=== PATIENT | male | born 1985 | race American Indian/Alaskan Native ===

== ENCOUNTER 2018-07-09 04:35 | Emergency (ER) | payer OTHER ==
[2018-07-09 06:03] LABS: Bilirubin,Urine NEG (Negative); Blood,Urine LG (Negative); Color,Urine Yellow (Yellow); Mucus,Urine FEW /HPF; Protein,Urine <15 mg/dL mg/dL (Negative); Urobilinogen,Urine < 2.0 mg/dL (<2.0)
[2018-07-09] MEDS ORDERED: TYLENOL ONE (06:17)
[2018-07-09] MEDS ORDERED: TYLENOL PO ONE (06:20)
--- NOTE | 2018-07-09 07:52 | Emergency Department Report ---
ED Back Pain/Injury HPI - General Chief Complaint: Urogenital-Male Stated Complaint: BACK PAIN FREQUENT URINATING Time Seen by Provider: 07/09/18 07:20 Source: patient, family Limitations: No Limitations - History of Present Illness Initial Comments: This is a 32-year-old male here reports that he has back pain with burning on urination that started this morning. He reports that pain is on both sides of his back and he is going to the bathroom frequently. He reports some nausea without any vomiting and an denies any abdominal pain. Denies any back injury. Denies any history of kidney stone. Patient denies any medical problems. Pain is 10 out of 10 and achy to back. Pain is constant and no medication taken prior to coming to the hospital. Denies any penile discharge MD Complaint: back pain -: This morning Place: home Radiation: none Severity: severe Severity scale (0 -10): 10 Quality: aching Consistency: constant Improves With: none Worsens With: movement Context: unknown Associated Symptoms: other (urinary burning and frequency). denies: confusion, weakness, chest pain, numbness, difficulty walking, cough, difficulty urinating, diaphoresis, incontinence, fever/chills, constipation, headaches, abdominal pain, loss of appetite, malaise, nausea/vomiting, rash, seizure, shortness of breath, syncope Treatments Prior to Arrival: other (none) - Related Data Previous Rx's Medication Instructions Recorded Last Taken Type Ciprofloxacin HCl [Ciprofloxacin 500 mg PO Q12HR 7 Days #14 tab 07/09/18 Unknown Rx TAB] Ibuprofen [Motrin] 800 mg PO Q8HR PRN #12 tablet 07/09/18 Unknown Rx Ondansetron [Zofran ODT TAB] 8 mg PO Q8HR PRN #12 tab.rapdis 07/09/18 Unknown Rx Tamsulosin [Flomax] 0.4 mg PO QDAY 3 Days #3 cap 07/09/18 Unknown Rx Allergies Allergy/AdvReac Type Severity Reaction Status Date / Time No Known Allergies Allergy Unverified 07/09/18 04:46 ED Review of Systems ROS: Stated complaint: BACK PAIN FREQUENT URINATING Other details as noted in HPI Constitutional: denies: chills, fever ENT: denies: throat pain, congestion Respiratory: denies: cough, shortness of breath, wheezing Cardiovascular: denies: chest pain, palpitations, edema, syncope Gastrointestinal: nausea. denies: abdominal pain, vomiting, diarrhea, constipation, hematemesis, melena, hematochezia Genitourinary: frequency. denies: dysuria, hematuria, discharge, testicular pain, testicular mass Musculoskeletal: back pain. denies: joint swelling, arthralgia, myalgia Skin: denies: rash Neurological: denies: headache, numbness, paresthesias, abnormal gait, vertigo ED Past Medical Hx - Past Medical History Medical history: no medical history Surgical history: no surgical history (the) Psychiatric history: no pertinent history Family history: no significant family history - Social History Smoking Status: Never Smoker Alcohol use: none Drug use: none ED Back Pain Physical Exam - Exam General: Vital signs noted. No distress. Alert and acting appropriately. This is a 32-year-old male here reports urinary burning, frequency with back pain. He is well-nourished well-developed in no acute distress Back/Abdomen: Yes Flank Tenderness (minimal CVA tenderness ,right), No Abdominal Tenderness, No Perithoracic Tenderness, No Perilumbar Tenderness, No Sacroiliac Tenderness Neuro: Yes Normal Sensation, Yes Motor Weakness, Yes Normal DTR's, Yes Normal Gait ED Course Vital Signs 07/09/18 04:44 Temperature 98.4 F Pulse Rate 65 Respiratory 18 Rate Blood Pressure 166/102 O2 Sat by Pulse 99 Oximetry Vital Signs 07/09/18 07/09/18 04:44 11:33 Temperature 98.4 F Pulse Rate 65 Respiratory 18 Rate Blood Pressure 166/102 Blood Pressure 139/99 [Right] O2 Sat by Pulse 99 Oximetry - Reevaluation(s) Reevaluation #1: 07/09/18 11:28 Pt given 1 liter ivf, 650 mg tylenol in triage, 4 mg morphine iv and zofran 8 mg iv in ed and upon reevalution , he voiced pain is better Ed Back Pain Tests - Tests Tests: Normal UA (normal except for large amount of blood), Abnormal X Rays (CT scan abdomen and pelvis without contrast shows positive kidney stones.) ED Medical Decision Making - Lab Data Lab Results 07/09/18 07/09/18 Range/Units 10:28 Unknown Sodium 142 (137-145) mmol/L Potassium 4.2 (3.6-5.0) mmol/L Chloride 104.7 (98-107) mmol/L Carbon Dioxide 25 (22-30) mmol/L Anion Gap 17 mmol/L BUN 11 (9-20) mg/dL Creatinine 0.9 (0.8-1.5) mg/dL Estimated GFR > 60 ml/min BUN/Creatinine Ratio 12 % Glucose 128 H (75-100) mg/dL Calcium 9.2 (8.4-10.2) mg/dL Urine Color Yellow (Yellow) Urine Turbidity Clear (Clear) Urine pH 7.0 (5.0-7.0) Ur Specific [place] 1.016 (1.003-1.030) Urine Protein <15 mg/dl (Negative) mg/dL Urine Glucose (UA) Neg (Negative) mg/dL Urine Ketones Neg (Negative) mg/dL Urine Blood Lg (Negative) Urine Nitrite Neg (Negative) Urine Bilirubin Neg (Negative) Urine Urobilinogen < 2.0 (<2.0) mg/dL Ur Leukocyte Esterase Neg (Negative) Urine WBC (Auto) 1.0 (0.0-6.0) /HPF Urine RBC (Auto) 162.0 (0.0-6.0) /HPF Urine Mucus Few /HPF Urine culture sent - Radiology Data Radiology results: report reviewed CT scan of abdomen and pelvis without contrast dictated by radiologist and report reviewed by myself. Please see details [place] [address] Cat Scan Report Signed Patient: BETTY PIERRE MR#: [id number] 8 : 1985 Acct:[id number] Age/Sex: 32 / M ADM Date: 07/09/18 Loc: ED Attending Dr: Ordering Physician: ASHLEY SHABAZZ Date of Service: 07/09/18 Procedure(s): CT abdomen pelvis wo con Accession Number(s): [id number] cc: ASHLEY SHABAZZ PROCEDURE: CT ABDOMEN PELVIS WO CON TECHNIQUE: Noncontrast CT of the abdomen and pelvis was performed. Axial images and coronal and sagittal reformatted images were obtained. HISTORY: right flank pain and back pain with urine freq COMPARISON: None FINDINGS: There is a 10 x 5 x 7 mm obstructing stone at the right ureterovesical junction causing mild right hydronephrosis and hydroureter. There is a 3 mm nonobstructing right intrarenal calculus. There are some fluid containing mildly prominent bowel loops in the mid to lower abdomen probably related to ileus. Obstruction unlikely. Within the limitations of a noncontrast exam, the visualized liver, spleen, pancreas, adrenal glands and left kidney demonstrate no significant abnormality. There is no abdominal aortic aneurysm. The appendix is normal. There is no abnormal fluid collection seen. There is no free intraperitoneal air. Bladder is otherwise unremarkable. IMPRESSION: There is a 10 x 5 x 7 mm obstructing stone at the right ureterovesical junction causing mild right hydronephrosis and moderate hydroureter. There is also a 3 mm nonobstructing right intrarenal calculus. This document is electronically signed by Ewa Holt MD., July 09 2018 10:32:25 AM ET Transcribed By: [facility] Dictated By: EWA HOLT MD Electronically Authenticated By: EWA HOLT MD Signed Date/Time: 07/09/1834 DD/ 7 TD/TT: 07/09/18902 - Medical Decision Making This is a 32-year-old male here with back pain urinary burning and frequency. CT scan of the abdomen and pelvis without contrast shows: IMPRESSION: This is dictated by radiologist and report reviewed by myself. There is a 10 x 5 x 7 mm obstructing stone at the right ureterovesical junction causing mild right hydronephrosis and moderate hydroureter. There is also a 3 mm nonobstructing right intrarenal calculus. This document is electronically signed by Ewa Holt MD., July 09 2018 10:32:25 AM ET BMP: Stable except minimal elevation in lead glucose at 128, non-fasting Urinalysis-stable except large blood seen Assessment/plan- right UVJ stone with obstruction and right intra-renal calculus-referral to urologist Mild right hydronephrosis and moderate hydroureter Lower back pain-patient given 1 L of normal saline 1 and IV, 8 mg Zofran IV and 4 mg morphine IV and pain is relieved. He will be sent home on pain medication and nausea medication. He was given Tylenol 650 mg by mouth in triage area for pain. Urinary burning and frequency-UA stable except for large amount of blood-urine culture sent and will be sent home on antibiotic I discussed the patient is diagnosis, treatment plan, medication and need to follow up with urologist in 2 days for evaluation of kidney and urethral stone and he voiced understanding. I also discussed with him if he develops fever, nausea vomiting and increasing pain to return to the emergency room [facility] and he voiced understanding. Patient is stable and pain-free vital signs stable and is afebrile and discharged home in stable condition with prescription for ciprofloxacin, Volmax, Motrin, Eighty Eight. Discharged home with his family. - Differential Diagnosis kidney stone, uti, back Critical care attestation.: If time is entered above; I have spent that time in minutes in the direct care of this critically ill patient, excluding procedure time. ED Disposition Clinical Impression: Renal calculus, right, Obstruction of right ureteropelvic junction (UPJ) due to stone, Dysuria Disposition: - TO HOME OR SELFCARE Is pt being admited?: No Does the pt Need Aspirin: No Condition: Stable Instructions: Kidney Stones (ED), Renal Colic (ED), How to Strain Your Urine (ED), Flank Pain (ED), Hydronephrosis (ED) Additional Instructions: Please increase his fluid intake to at least 3-4 L of water daily until stone is passed. If she did not feel any better and you to for fever, increased pain and discomfort, nausea and deformity in his return to emergency room. Take Motrin for mild pain and Eighty Eight for moderate to severe pain. Please do not drive or operate heavy machinery while taking this medication as it causes drowsiness Take all of the medication as prescribed Follow-up with the urologist as discussed. Referrals: PIPPA VELEZ MD [Primary Care Provider] - 07/11/18 ASHLEY VANN [Provider Group] - 07/11/18 Forms: Work/School Release Form(ED), Accompanied Note
--- NOTE | 2018-07-09 09:34 | Cat Scan Report ---
PROCEDURE: CT ABDOMEN PELVIS WO CON TECHNIQUE: Noncontrast CT of the abdomen and pelvis was performed. Axial images and coronal and sagit marguerite reformatted images were obtained. HISTORY: right flank pain and back pain with urine freq COMPARISON: None FINDINGS: There is a 10 x 5 x 7 mm obstructing stone at the right ureterovesical junction causing mild right hy dronephrosis and hydroureter. There is a 3 mm nonobstructing right intrarenal calculus. There are some fluid containing mildly prominent bowel loops in the mid to lower abdomen probably rel ated to ileus. Obstruction unlikely. Within the limitations of a noncontrast exam, the visualized liver, spleen, pancreas, adrenal glands and left kidney demonstrate no significant abnormality. There is no abdominal aortic aneurysm. The appendix is normal. There is no abnormal fluid collection seen. There is no free intraperitoneal air. Bladder is otherwise unremarkable. IMPRESSION: There is a 10 x 5 x 7 mm obstructing stone at the right ureterovesical junction causing mild right hy dronephrosis and moderate hydroureter. There is also a 3 mm nonobstructing right intrarenal calculus. This document is electronically signed by Ewa Holt MD., July 09 2018 10:32:25 AM ET
[2018-07-09] MEDS ORDERED: NACL 0.9% 1000 ML 1,000 ML IV ONE (10:17)
[2018-07-09] MEDS ORDERED: ZOFRAN IV ONE (10:17)
[2018-07-09] MEDS ORDERED: MORPHINE IV ONE (10:20)
[2018-07-09 11:01] LABS: BUN/Creatinine Ratio 12; Blood Urea Nitrogen 11 mg/dL (9-20); Calcium 9.2 mg/dL (8.4-10.2); Hemolysis Index 16
[2018-07-09 11:34] VITALS: BP 139/99
== END 2018-07-09 12:30 | disposition home or self-care (01) ==
LOC: ED 04:35
DX: N20.0 Calculus of kidney (principal); N20.1 Calculus of ureter
CPT/HCPCS: 36415; 74176; 80048; 81001; J2270; J2405; J7030; 96361; 96374; 96375